=== PATIENT | female | born 1970 | race Caucasian/White ===

== ENCOUNTER → 2019-09-25 | Day surgery (SDC) | payer OTHER, MEDICAID ==
[~2019-09-25] MED LIST: AMOXIL 875 MG875 M1 PO; CELEXA 20 MG TA20 MG PO; NASACORT10.8 ML NASAL; REXULTI2 MG PO
--- NOTE | ~2019-09-25 | PROC ---
[address] [address] PROCEDURE REPORT Name: BRENDON REHMAN I Room: [facility]#: [id number] Admission: 09/25/19 Attend Phys: Bruno Nuno DO Discharge: Date of : 74 Report #: [id number] THIS REPORT FOR: //name// cc: STEPH BANUELOS Physician not on staff ~ THIS REPORT FOR: //name// For GI report, please see the Provation report in Per[employer] content. By: 1237Medical Records Staff GLADYS /MISSY
[2019-09-25 08:41] LABS: URINE BLOOD 3+ (Negative); URINE CLARITY CLEAR; URINE COLOR YELLOW; URINE GLUCOSE-RANDOM NEGATIVE (Negative); URINE KETONES NEGATIVE (Negative); URINE LEUKOCYTES-REFLEX NEGATIVE (Negative); URINE NITRITE-REFLEX NEGATIVE (Negative); URINE PROTEIN 2+ (Negative); URINE SPECIFIC GRAVITY >= 1.030 (1.005-1.030); URINE UROBILINOGEN 0.2 E.U./dl (0.2-1.0)
[2019-09-25 08:45] LABS: ICTOTEST (BILI CONFIRMATORY) Negative (Negative); URINE BILIRUBIN 1+ (Negative)
[2019-09-25 08:49] LABS: BACTERIA-REFLEX 1-9 Few /HPF (None Seen); CASTS None Seen /LPF (None Seen); CRYSTALS None Seen /LPF (None Seen); MUCUS None Seen strn/LPF (None Seen); SQUAMOUS 4-10 Moderate /LPF (0-3); URINE RBC >20 Many /HPF (0-2); URINE WBC-REFLEX 0-5 Rare /HPF (0-5)
[2019-09-25 09:33] LABS: ABSOLUTE BASOPHILS 0.1 thou/uL (0.0-0.2); ABSOLUTE EOSINOPHILS 0.1 thou/uL (0.0-0.7); ABSOLUTE LYMPHOCYTES 1.6 thou/uL (0.8-5.3); ABSOLUTE MONOCYTES 0.5 thou/uL (0.0-1.2); ABSOLUTE NEUTROPHILS 4.4 thou/uL (1.6-8.1); BASOPHILS 0.8 %; EOSINOPHILS 2.1 %; HEMATOCRIT 38.2 % (37.0-47.0); LYMPHOCYTES 24.2 %; MCH 28.6 pg (26.0-34.0); MCHC 34.1 g/dL (28.0-37.0); MCV 83.9 fL (80.0-100.0); MONOCYTES 7.8 %; MPV 8.2 fl. (7.2-11.1); NUCLEATED RBCS 0 /100WBC; PLATELET COUNT* 295 thou/uL (150-400); POLYS 65.1 %; RBC 4.55 mil/uL (4.20-5.00); RDW-CV 13.7 % (10.5-14.5); WBC 6.7 thou/uL (4.0-11.0)
--- NOTE | 2019-09-27 17:07 | PATH ---
[address] [address] PATHOLOGY RPT PROCEDURE Name: MASHA REHMAN I Room: [facility].#: [id number] Admission: 09/25/19 Date of : 74 Discharge: Report #: [id number] Path Case #: [id number] [facility] Accession Number: [id number] . 01 Material submitted: . colon - DESCENDING COLON POLYP - HOT SNARE. Modifiers: descending . 01 Clinical history: . Acid reflux, upper abdominal pain, chronic constipation, family history of colon cancer . 02 Diagnosis: Descending colon polyp hot snare: - Tubular adenoma, negative for high grade dysplasia. (JANY/db; 09/26/2019) LBQ 09/27/2019 1107 Local . 02 Electronically signed: . Baudilio Montelongo MD, Pathologist NPI- [id number] . 01 Gross description: . The specimen is received in formalin, labeled "Masha Rehman, descending colon polyp hot snare". Received are two segments of pale forrester soft tissue ranging in size from 0.6 to 0.7 cm in maximum dimensions. The surgical margin of the larger segment is inked and the segment is bisected. The specimen is submitted entirely in cassette A1. (CAA; 09/26/2019) QA/QA 09/26/2019 1153 Local . 02 Pathologist provided ICD-10: D12.4 . 02 CPT . 726303 Specimen Comment: A courtesy copy of this report has been sent to [phone] Specimen Comment: Report sent to Performed at: [address], [place], [place] [id number] MD Jass Ortega MD Phone: [phone] Performed at: 02 [facility] [address], [place], [place] [id number] MD Baudilio Montelogno MD Phone: [phone]
== END | disposition home or self-care (01) ==
LOC: M.SUR 06:29
PROVIDERS: Anesthesiology
DX: K59.09 Other constipation (principal); R10.11 Right upper quadrant pain; D12.4 Benign neoplasm of descending colon; K64.4 Residual hemorrhoidal skin tags; K21.9 Gastro-esophageal reflux disease without esophagitis; R10.84 Generalized abdominal pain; F32.9 Major depressive disorder, single episode, unspecified; G40.909 Epilepsy, unspecified, not intractable, without status epilepticus; Z98.890 Other specified postprocedural states; Z79.899 Other long term (current) drug therapy; Z86.19 Personal history of other infectious and parasitic diseases; Z80.0 Family history of malignant neoplasm of digestive organs